=== PATIENT | male | born 1965 | race Hispanic/Latino ===

== ENCOUNTER 2016-07-26 18:28 | Inpatient (IN) | payer MEDICAID ==
[2016-07-26 18:29] VITALS: BMI 23.9
[2016-07-26] MEDS ORDERED: Sodium Chloride 0.9% 1,000 ML ONE (18:49)
[2016-07-26] MEDS ORDERED: Sodium Chloride 0.9% 1,000 ML IV ONE (18:56)
[2016-07-26 19:25] LABS: BASO % 0.2 % (0.0-2.0); HEMATOCRIT 46.5 % (35.0-51.0); LYMPH # 0.6 K/uL (1.0-4.3); LYMPH % 9.7 % (20.0-40.0); MEAN CELL VOLUME 93.5 fL (80.0-94.0); MEAN CORPUSCULAR HEMOGLOBIN 31.8 pg (27.0-31.0); MEAN PLATELET VOLUME 9.5 fL (7.2-11.7); MONO # 0.3 K/uL (0.0-0.8); MONO % 5.1 % (0.0-10.0); RED CELL DISTRIBUTION WIDTH 14.1 % (11.5-14.5)
[2016-07-26 19:33] LABS: CHLORIDE 85 mmol/L (98-107); POTASSIUM 4.7 mmol/L (3.6-5.2); SODIUM 137 mmol/L (132-148)
[2016-07-26 19:36] LABS: ALB/GLOB RATIO 1.3 (1.0-2.1); ALKALINE PHOSPHATASE 66 U/L (38-126); ALT/SGPT 52 U/L (21-72); AST/SGOT 69 U/L (17-59); BILIRUBIN,TOTAL 1.3 mg/dL (0.2-1.3); BLOOD UREA NITROGEN 13 mg/dL (9-20); CARBON DIOXIDE 16 mmol/L (22-30); GFR AFRICAN-AMERICAN > 60; GLUCOSE,RANDOM 233 mg/dL (75-110); TOTAL PROTEIN 9.3 g/dL (6.3-8.3)
[2016-07-26 19:37] LABS: ALCOHOL SERUM < 10 mg/dl (0-10)
[2016-07-26 19:44] LABS: PLATELET COUNT 87 K/uL (130-400); WHITE BLOOD COUNT 5.9 K/uL (4.8-10.8)
[2016-07-26 21:10] LABS: BASOPHIL 1 % (0-2); EOSINOPHIL 1 % (0-4); NEUTROPHIL 82 % (50-75); TOTAL CELLS COUNTED 100
[2016-07-26] MEDS ORDERED: Morphine 4 MG/ML VIAL ONE (21:10)
[2016-07-26 21:12] LABS: PLATELET CLUMPS PRESENT
[2016-07-26 21:35] LABS: VENOUS BLOOD GAS BASE EXCESS 0.6 mmol/L (0.0-2.0); VENOUS BLOOD GAS PCO2 36 mmHg (40-60); VENOUS BLOOD PH 7.44 (7.32-7.43)
--- NOTE | 2016-07-26 22:15 | C.PDOC ---
History Of Present Illness Patient presents to ED and extremity tremors, as well as multiple episodes of nausea/vomiting since yesterday. Patient typically drinks daily, last alcoholic drink was yesterday morning. He denies chest pain, SOB, diarrhea, fever, cough. Time Seen by Provider: 07/26/16 18:56 Chief Complaint (Nursing): Substance Abuse History Per: Patient Onset/Duration Of Symptoms: Gradual Current Symptoms Are (Timing): Still Present Modifying Factor(s): Alcohol Severity: Severe Past Medical History Reviewed: Historical Data, Nursing Documentation, Vital Signs Vital Signs: Last Vital Signs Temp 98.7 F 07/26/16 21:43 Pulse 104 H 07/26/16 21:43 Resp 20 07/26/16 21:43 BP 147/86 07/26/16 21:43 Pulse Ox 96 07/26/16 22:15 - Medical History PMH: Anxiety, Depression, 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) - [facility] Procedures ALCOHOL DETOXIFICATION (09/28/14) DETOXIFICATION SERVICES FOR SUBSTANCE ABUSE TREATMENT (02/20/16) GROUP [employer] FOR SUBSTANCE ABUSE TREATMENT, PSYCHOEDUCATION (10/27/15) - Social History Hx Tobacco Use: Yes Hx Alcohol Use: Yes Hx Substance Use: Yes - Immunization History Hx Tetanus Toxoid Vaccination: No Hx Influenza Vaccination: No Hx Pneumococcal Vaccination: No Review Of Systems Except As Marked, All Systems Reviewed And Found Negative. Constitutional: Negative for: Fever, Chills Cardiovascular: Negative for: Chest Pain, Palpitations Respiratory: Negative for: Shortness of Breath Gastrointestinal: Positive for: Nausea, Vomiting, Abdominal Pain. Negative for : Diarrhea Neurological: Positive for: Other (tremors) Physical Exam - Physical Exam Appears: Non-toxic, In Acute Distress (in moderate distress/pain) Skin: Warm, Dry Head: Normacephalic Eye(s): bilateral: Normal Inspection Oral Mucosa: Moist Tongue: Normal Appearing, Other (no tongue fasciculations) Cardiovascular: Rhythm Regular (tachycardic ) Respiratory: Normal Breath Sounds, No Rales, No Rhonchi, No Wheezing Gastrointestinal/Abdominal: Bowel Sounds, Soft, Tenderness (diffuse TTP greatest ar epigastric area), No Distention, No Guarding, No Rebound Neurological/Psych: Oriented x3, Other (moderate to severe tremors of extremities) ED Course And Treatment - Laboratory Results Result Diagrams: 07/26/16 19:19 07/26/16 19:19 O2 Sat by Pulse Oximetry: 96 - Physician Consult Information Physician Contacted: Mirna Davis Outcome Of Conversation: Discussed patient with Dr. Taylor Davis, he agrees with telemetry admission for alcohol withdrawal.
[2016-07-26 22:48] LABS: RBC URINE 5 /hpf (0-3); URINE BACTERIA RARE (<OCC); URINE BILIRUBIN NEGATIVE (NEGATIVE); URINE COLOR Yellow (YELLOW); URINE GLUCOSE (UA) 2+ mg/dL (Normal); URINE KETONE 2+ mg/dL (NEGATIVE); URINE LEUKOCYTE ESTERASE NEG Leu/uL (Negative); URINE PROTEIN 2+ mg/dL (NEGATIVE); URINE UROBILINOGEN NORMAL mg/dL (0.2-1.0); WBC URINE 1 /hpf (0-5)
[2016-07-26] MEDS ORDERED: Folic Acid 1 MG, Thiamine 100 MG, Multivitamin (MVI) 10 ML in Dextrose 5% In Water 1,00... IVPB STA (22:48)
[2016-07-26 22:51] LABS: URINE BLOOD TRACE (NEGATIVE)
--- NOTE | 2016-07-27 08:34 | RAD ---
HISTORY: ABDOMINAL PAIN COMPARISON: Chest x-ray performed 09/28/14 TECHNIQUE: Chest, one view. FINDINGS: External cardiac monitoring leads present. LUNGS: No focal consolidation. Please note that chest x-ray has limited sensitivity for the detection of pulmonary masses. PLEURA: No significant pleural effusion identified. No definite pneumothorax . CARDIOVASCULAR: Heart size appears within normal limits. OSSEOUS STRUCTURES: No acute osseous abnormality identified. VISUALIZED UPPER ABDOMEN: Unremarkable. OTHER FINDINGS: None. IMPRESSION: No focal consolidation, significant pleural effusion, or definite pneumothorax identified.
[2016-07-27] MEDS: Multiple Vitamins Tab PO SCH (09:45)
--- NOTE | 2016-07-27 16:16 | PCM.PSYCH ---
Initial Psychiatric Evaluation - Initial Psychiatric Evaluation Type of Admission: Voluntary Legal Status: Capacity Chief Complaint (in patient's own words): I was withdrawing from alcohol History of Present Illness and Precipitating Events: Pt is a 51 y/o CM who is currently living with family and currently unemployed, with history of alcohol dependence and depression, presented to the ED yesterday with tremors and/or DTs. Today patient was consulted because of history of alcohol abuse and depression. Cemetery Keeper is familiar with this patient. Patient has been admitted to the medical floor multiple times for the same issue. Patient is also following up with [facility]. As per the patient since last month he is drinking heavily. Patient states that day before yesterday he consumed more than 1 L of vodka. Yesterday he started developing shakes and tremors, so came to the hospital to get help. Patient reports of withdrawal symptoms including shakes, tremors, sweating, vomiting, anxiety and headaches. Patient reports depressed mood, at times feelings of hopelessness or helplessness but denies any suicidal ideation or homicidal ideation. He reports of auditory hallucinations noncommand type and visual hallucinations seeing shadows. He also reports at times racing of thoughts and flight of ideas and poor concentration. Patient denies any other substance abuse. Current Medications: Active Medications Generic Name Dose Route Start Last Admin Trade Name Freq PRN Reason Stop Dose Admin Chlordiazepoxide 25 mg 07/27/16 06:00 07/27/16 13:30 Librium PO 25 mg Q8 [facility] Administration Levetiracetam 250 mg 07/27/16 18:00 Keppra PO BID [facility] Metoclopramide HCl 10 mg 07/27/16 07:30 07/27/16 11:34 Reglan PO 10 mg TIDAC [facility] Administration Multivitamins 1 tab 07/27/16 10:00 07/27/16 09:45 Hexavitamin PO 1 tab DAILY [facility] Administration Pantoprazole Sodium 40 mg 07/27/16 10:00 07/27/16 09:45 Protonix Inj IVP 40 mg DAILY [facility] Administration Thiamine HCl 100 mg 07/27/16 10:00 07/27/16 09:45 Vitamin B1 Tab PO 100 mg DAILY [facility] Administration Past Psychiatric History - Past Psychiatric History Previous Treatment History: Inpatient Pertinent Medical Hx (Current Medical&Sleep Prob, Allergies): Allergies Allergy/AdvReac Type Severity Reaction Status Date / Time No Known Allergies Allergy Verified 10/09/16 10:39 levETIRAcetam [Keppra] 250 mg PO BID #14 tab 10/31/15 Gabapentin [Neurontin] 600 mg PO TID #90 cap 02/27/16 Pantoprazole [Protonix EC Tab] 40 mg PO DAILY #30 ect 02/27/16 QUEtiapine [Seroquel] 100 mg PO HS #30 tab 02/27/16 Topiramate [Topamax] 25 mg PO TID #90 tab 02/27/16 Review of Systems - Review of Systems All systems: reviewed and no additional remarkable complaints except - Psychiatric Psychiatric: Anxiety, Auditory Hallucinations, Irritability, Paranoia, Suicidal Ideation, Visual Hallucinations Mental Status Examination - Personal Presentation Personal Presentation: Looks stated age - Affect Affect: Constricted, Depressed - Motor Activity Motor Activity: Psychomotor Retardation - Reliability in Providing Information Reliability in Providing Information: Poor, due to alteration in thoughts, Poor , due to altered mood - Speech Speech: Organized - Mood Mood: Depressed, Anxious - Formal Thought Process Formal Thought Process: Hallucinations, Delusions, Paranoia - Hallucinations/Delusions Hallucinations: Visual, Auditory Delusions: Persecution - Obsessions/Compulsions Obsessions: No Compulsions: No - Cognitive Functions Orientation: Person, Place, Situation, Time Sensorium: Alert Attention/Concentration: Attentive Abstract Thinking: [place] Estimate of Intelligence: Below average Judgement: Imparied, as evidence by: Poor judgement, Intact, as evidence by: Insight regarding need for hospitalization - Risk Risk: Withdrawal, Diminished functioning - Strength & Assets Inventory Strength & Assets Inventory: Cooperative - Limitations Limitations: Living alone DSM 5 DX - DSM 5 DSM 5 Diagnosis: Alcohol use disorder severe Alcohol withdrawal uncomplicated Bipolar disorder mixed severe with psychotic features - Recommended/Plan of Treatment Treatment Recommendations and Plan of Treatment: Alcohol use disorder severe CBT Psychoeducation Supportive therapy, individual therapy Use [place] for abstinence Alcohol withdrawal uncomplicated CBT Psychoeducation Supportive therapy, individual therapy Librium when necessary Librium taper Multivitamin/thiamine/folic acid Bipolar disorder mixed severe with psychotic features CBT Psychoeducation Supportive therapy, individual therapy Zoloft 50 mg PO daily Haldol 5 mg by mouth twice a day Cogentin 1 mg by mouth twice a day Keppra 250 Mg by Mouth Twice a Day - Smoking Cessation Smoking Cessation Initiated: No
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
[2016-07-28] MEDS: Multiple Vitamins Tab PO SCH (09:32)
[2016-07-28] MEDS: Pantoprazole 40 mg EC Tab PO SCH (12:22)
--- NOTE | 2016-07-28 14:37 | CP.PCM.PN ---
Subjective - Date & Time of Evaluation Date of Evaluation: 07/28/16 Time of Evaluation: 10:20 - Subjective Subjective: clinically same Objective - Vital Signs/Intake and Output Vital Signs (last 24 hours): Temp Pulse Resp BP Pulse Ox 97.6 F 72 18 109/69 97 07/28/16 07:38 07/28/16 07:38 07/28/16 07:38 07/28/16 07:38 07/28/16 07:38 Intake and Output: 07/28/16 07/28/16 06:59 18:59 Intake Total 320 Output Total 900 Balance -580 - Medications Medications: Current Medications Benztropine Mesylate (Cogentin) 1 mg PO BID [facility] Last Admin: 07/28/16 09:32 Dose: 1 mg Chlordiazepoxide (Librium) 25 mg PO Q6H [facility] PRN Reason: Taper Stop: 07/31/16 17:59 Last Admin: 07/28/16 12:21 Dose: 25 mg Chlordiazepoxide (Librium) 50 mg PO Q4 PRN PRN Reason: Symptoms of alcohol withdrawl Last Admin: 07/27/16 21:48 Dose: 50 mg Folic Acid (Folic Acid) 1 mg PO DAILY [facility] Last Admin: 07/28/16 09:32 Dose: 1 mg Haloperidol (Haldol) 5 mg PO BID [facility] Last Admin: 07/28/16 09:32 Dose: 5 mg Levetiracetam (Keppra) 250 mg PO BID [facility] Last Admin: 07/28/16 09:32 Dose: 250 mg Metoclopramide HCl (Reglan) 10 mg PO TIDAC [facility] Last Admin: 07/28/16 12:22 Dose: 10 mg Multivitamins (Hexavitamin) 1 tab PO DAILY [facility] Last Admin: 07/28/16 09:32 Dose: 1 tab Pantoprazole Sodium (Protonix Ec Tab) 40 mg PO DAILY [facility] Last Admin: 07/28/16 12:22 Dose: 40 mg Sertraline HCl (Zoloft) 50 mg PO DAILY [facility] Last Admin: 07/28/16 09:36 Dose: 50 mg Thiamine HCl (Vitamin B1 Tab) 100 mg PO DAILY [facility] Last Admin: 07/28/16 09:32 Dose: 100 mg - Constitutional Appears: Well - Head Exam Head Exam: ATRAUMATIC, NORMAL INSPECTION, NORMOCEPHALIC - Eye Exam Eye Exam: EOMI, Normal appearance, PERRL Pupil Exam: NORMAL ACCOMODATION, PERRL - ENT Exam ENT Exam: Mucous Membranes Moist, Normal Exam - Neck Exam Neck Exam: Full ROM, Normal Inspection. absent: Lymphadenopathy - Respiratory Exam Respiratory Exam: Decreased Breath Sounds - Cardiovascular Exam Cardiovascular Exam: REGULAR RHYTHM, +S1, +S2 - GI/Abdominal Exam GI & Abdominal Exam: Soft, Diminished Bowel Sounds - Rectal Exam Rectal Exam: Deferred Assessment and Plan (1) Abdominal pain Status: Acute (2) Alcohol withdrawal syndrome Status: Acute (3) Alcohol abuse Status: Acute (4) Alcohol dependence Status: Acute (5) Alcohol intoxication Status: Acute (6) BPH (benign prostatic hyperplasia) Status: Acute (7) Delirium tremens Status: Acute - Assessment and Plan (Free Text) Plan: iris teresa precaution jean-claude same alco detox stop alco advsied
--- NOTE | 2016-07-29 09:09 | CARD ---
APPROVED REPORT EKG Measurement Heart [id number] <Conclusion> Normal sinus rhythm Normal ECG
[2016-07-29] MEDS: Multiple Vitamins Tab PO SCH (10:15)
[2016-07-29] MEDS: Pantoprazole 40 mg EC Tab PO SCH (10:15)
--- NOTE | 2016-07-29 10:59 | CP.PCM.PN ---
Subjective - Date & Time of Evaluation Date of Evaluation: 07/29/16 Time of Evaluation: 09:00 - Subjective Subjective: clinical same Objective - Vital Signs/Intake and Output Vital Signs (last 24 hours): Temp Pulse Resp BP Pulse Ox 98 F 65 18 125/84 96 07/29/16 08:39 07/29/16 08:39 07/29/16 08:39 07/29/16 08:39 07/29/16 08:39 - Medications Medications: Current Medications Benztropine Mesylate (Cogentin) 1 mg PO BID [facility] Last Admin: 07/29/16 10:15 Dose: 1 mg Chlordiazepoxide (Librium) 25 mg PO Q8H [facility] PRN Reason: Taper Stop: 07/31/16 17:59 Last Admin: 07/29/16 10:15 Dose: 25 mg Chlordiazepoxide (Librium) 50 mg PO Q4 PRN PRN Reason: Symptoms of alcohol withdrawl Last Admin: 07/28/16 22:31 Dose: 50 mg Folic Acid (Folic Acid) 1 mg PO DAILY [facility] Last Admin: 07/29/16 10:15 Dose: 1 mg Haloperidol (Haldol) 5 mg PO BID [facility] Last Admin: 07/29/16 10:15 Dose: 5 mg Levetiracetam (Keppra) 250 mg PO BID [facility] Last Admin: 07/29/16 10:15 Dose: 250 mg Metoclopramide HCl (Reglan) 10 mg PO TIDAC [facility] Last Admin: 07/29/16 08:15 Dose: 10 mg Multivitamins (Hexavitamin) 1 tab PO DAILY [facility] Last Admin: 07/29/16 10:15 Dose: 1 tab Pantoprazole Sodium (Protonix Ec Tab) 40 mg PO DAILY [facility] Last Admin: 07/29/16 10:15 Dose: 40 mg Sertraline HCl (Zoloft) 50 mg PO DAILY [facility] Last Admin: 07/29/16 10:14 Dose: 50 mg Thiamine HCl (Vitamin B1 Tab) 100 mg PO DAILY [facility] Last Admin: 07/29/16 10:16 Dose: 100 mg - Constitutional Appears: Well - Head Exam Head Exam: ATRAUMATIC - Eye Exam Eye Exam: Normal appearance Pupil Exam: NORMAL ACCOMODATION - ENT Exam ENT Exam: Normal Exam - Neck Exam Neck Exam: Full ROM - Respiratory Exam Respiratory Exam: Decreased Breath Sounds, Rales - Cardiovascular Exam Cardiovascular Exam: REGULAR RHYTHM - GI/Abdominal Exam GI & Abdominal Exam: Diminished Bowel Sounds - Rectal Exam Rectal Exam: Deferred - Neurological Exam Neurological Exam: Alert Assessment and Plan (1) Abdominal pain Status: Acute (2) Alcohol withdrawal Status: Acute (3) Alcohol withdrawal syndrome Status: Acute (4) Anxiety and depression Status: Acute (5) Confusion Status: Acute (6) Prophylactic measure Status: Acute (7) Thrombocytopenia Status: Acute (8) Alcohol abuse Status: Acute (9) Alcohol dependence Status: Acute (10) Alcohol intoxication Status: Acute (11) Alcoholism /alcohol abuse Status: Acute (12) BPH (benign prostatic hyperplasia) Status: Acute (13) Constipation Status: Acute (14) Dehydration Status: Acute (15) Delirium tremens Status: Acute (16) Elevated LFTs Status: Acute (17) Foot pain, right Status: Acute (18) Hypertension Status: Acute (19) Leukocytopenia Status: Acute (20) Thrombocytopenia due to diminished platelet production Status: Acute (21) Tobacco abuse Status: Acute (22) Vomiting Status: Acute - Assessment and Plan (Free Text) Plan: etoh stop thiamne mvi dts precaution jean-claude same as ordered lft monitoring
--- NOTE | 2016-07-30 07:36 | CP.PCM.PN ---
<Gregory Maradiaga H - Last Filed: 07/30/16 16:59> Subjective - Date & Time of Evaluation Date of Evaluation: 07/30/16 Time of Evaluation: 09:30 - Subjective Subjective: Dr. Davis service Patient is seen and evaluated in room. Patient reports feeling anxious. He says he is eating and having bowel movements. He has a tremor that has improved. He reports a history of seizures due to etoh withdrawal. He currently denies nausea, vomiting, diarrhea, shortness of breath, chest pain, or lower leg swelling or pain. He is able to walk around his room although he still has a hand tremors. Objective - Vital Signs/Intake and Output Vital Signs (last 24 hours): Temp Pulse Resp BP Pulse Ox 97.8 F 89 20 123/79 96 07/29/16 23:00 07/29/16 23:00 07/29/16 23:00 07/29/16 23:00 07/29/16 23:00 Intake and Output: 07/30/16 07/30/16 06:59 18:59 Intake Total 120 Balance 120 - Medications Medications: Current Medications Benztropine Mesylate (Cogentin) 1 mg PO BID [facility] Last Admin: 07/29/16 17:31 Dose: 1 mg Chlordiazepoxide (Librium) 25 mg PO Q12H [facility] PRN Reason: Taper Stop: 07/31/16 17:59 Last Admin: 07/30/16 05:37 Dose: Not Given Chlordiazepoxide (Librium) 50 mg PO Q4 PRN PRN Reason: Symptoms of alcohol withdrawl Last Admin: 07/28/16 22:31 Dose: 50 mg Folic Acid (Folic Acid) 1 mg PO DAILY [facility] Last Admin: 07/29/16 10:15 Dose: 1 mg Haloperidol (Haldol) 5 mg PO BID [facility] Last Admin: 07/29/16 17:31 Dose: 5 mg Levetiracetam (Keppra) 250 mg PO BID [facility] Last Admin: 07/29/16 17:31 Dose: 250 mg Metoclopramide HCl (Reglan) 10 mg PO TIDAC [facility] Last Admin: 07/29/16 16:36 Dose: 10 mg Multivitamins (Hexavitamin) 1 tab PO DAILY [facility] Last Admin: 07/29/16 10:15 Dose: 1 tab Nicotine (Nicoderm Cq) 1 patch TD DAILY [facility] Last Admin: 07/29/16 21:37 Dose: 1 patch Pantoprazole Sodium (Protonix Ec Tab) 40 mg PO DAILY [facility] Last Admin: 07/29/16 10:15 Dose: 40 mg Sertraline HCl (Zoloft) 50 mg PO DAILY [facility] Last Admin: 07/29/16 10:14 Dose: 50 mg Thiamine HCl (Vitamin B1 Tab) 100 mg PO DAILY [facility] Last Admin: 07/29/16 10:16 Dose: 100 mg - Constitutional Appears: Non-toxic, No Acute Distress - Head Exam Head Exam: ATRAUMATIC, NORMAL INSPECTION - Eye Exam Eye Exam: Normal appearance - Respiratory Exam Respiratory Exam: Clear to Ausculation Bilateral. absent: Rhonchi, Wheezes - Cardiovascular Exam Cardiovascular Exam: REGULAR RHYTHM, RRR, +S1, +S2. absent: Gallop, Rubs - GI/Abdominal Exam GI & Abdominal Exam: Soft, Normal Bowel Sounds. absent: Tenderness - Extremities Exam Extremities Exam: Normal Inspection. absent: Pedal Edema - Back Exam Back Exam: NORMAL INSPECTION - Skin Skin Exam: Normal Color Assessment and Plan (1) Alcohol withdrawal syndrome Assessment & Plan: Patient has been put on Ativan prn, will keep for with [facility]WA protocol for now. Because of the elevated LFTs have decided to dc his Librium. Will do a hepatitis panel. Patient on Folic, thiamine, Multivitamin Follow up Psychiatry Status: Acute (2) Transaminitis Assessment & Plan: Most likely secondary to the Librium given. Follow up Hepatits panel in the am. Status: Acute (3) Thrombocytopenia Assessment & Plan: Secondary to his etoh abuse. Status: Acute (4) Prophylactic measure Assessment & Plan: Protonix 40mg no anticoagulation due thrombocytopenia Nicoderm cq Zoloft 50mg Will Status: Acute <Mirna Davis S - Last Filed: 08/02/16 17:51> Objective - Vital Signs/Intake and Output Vital Signs (last 24 hours): Temp Pulse Resp BP Pulse Ox 97.5 F L 57 L 20 99/55 L 97 08/02/16 07:42 08/02/16 07:42 08/02/16 07:42 08/02/16 07:42 08/02/16 07:42 Intake and Output: 08/02/16 08/02/16 06:59 18:59 Intake Total 480 Balance 480 - Labs Labs: 08/02/16 07:11 08/02/16 07:11 Assessment and Plan (1) Abdominal pain Status: Acute (2) Alcohol withdrawal Status: Acute (3) Alcohol withdrawal syndrome Status: Acute (4) Anxiety and depression Status: Acute (5) Confusion Status: Acute (6) Prophylactic measure Status: Acute (7) Thrombocytopenia Status: Acute (8) Alcohol abuse Status: Acute (9) Alcohol dependence Status: Acute (10) Alcohol intoxication Status: Acute (11) Alcoholism /alcohol abuse Status: Acute (12) BPH (benign prostatic hyperplasia) Status: Acute (13) Constipation Status: Acute (14) Dehydration Status: Acute (15) Delirium tremens Status: Acute (16) Elevated LFTs Status: Acute (17) Foot pain, right Status: Acute (18) Hypertension Status: Acute (19) Leukocytopenia Status: Acute (20) Thrombocytopenia due to diminished platelet production Status: Acute (21) Tobacco abuse Status: Acute (22) Vomiting Status: Acute Attending/Attestation - Attestation I have personally seen and examined this patient.: Yes I have fully participated in the care of the patient.: Yes I have reviewed all pertinent clinical information, including history, physical exam and plan: Yes Notes (Text): 08/02/16 17:50 case seen and discussed with staff vitor mota as agreed
[2016-07-30] MEDS: Multiple Vitamins Tab PO SCH (09:54)
[2016-07-30] MEDS: Pantoprazole 40 mg EC Tab PO SCH (09:54)
[2016-07-30 11:50] LABS: BASO % 0.3 % (0.0-2.0); EOS # 0.2 K/uL (0.0-0.7); EOS % 3.3 % (0.0-4.0); HEMATOCRIT 42.3 % (35.0-51.0); LYMPH # 2.1 K/uL (1.0-4.3); LYMPH % 32.9 % (20.0-40.0); MEAN CORPUSCULAR HEMOGLOBIN 31.5 pg (27.0-31.0); MEAN CORPUSCULAR HGB CONC 32.9 g/dL (33.0-37.0); MEAN PLATELET VOLUME 10.9 fL (7.2-11.7); MONO # 0.4 K/uL (0.0-0.8); MONO % 6.7 % (0.0-10.0); RED CELL DISTRIBUTION WIDTH 13.8 % (11.5-14.5); WHITE BLOOD COUNT 6.3 K/uL (4.8-10.8)
[2016-07-30 12:13] LABS: MEAN CELL VOLUME 95.9 fL (80.0-94.0)
[2016-07-30 12:20] LABS: CHLORIDE 94 mmol/L (98-107); SODIUM 138 mmol/L (132-148)
[2016-07-30 12:21] LABS: POTASSIUM 3.8 mmol/L (3.6-5.2)
[2016-07-30 12:22] LABS: GFR AFRICAN-AMERICAN > 60
[2016-07-30 12:23] LABS: ALB/GLOB RATIO 1.4 (1.0-2.1); ALKALINE PHOSPHATASE 47 U/L (38-126); ALT/SGPT 214 U/L (21-72); AST/SGOT 198 U/L (17-59); BILIRUBIN,TOTAL 0.6 mg/dL (0.2-1.3); BLOOD UREA NITROGEN 12 mg/dL (9-20); CALCIUM 9.5 mg/dl (8.6-10.4); CARBON DIOXIDE 28 mmol/L (22-30); GLUCOSE,RANDOM 117 mg/dL (75-110); PHOSPHOROUS 4.2 mg/dL (2.5-4.5); TOTAL PROTEIN 7.4 g/dL (6.3-8.3)
[2016-07-30 12:24] LABS: MAGNESIUM 1.6 mg/dL (1.6-2.3)
--- NOTE | 2016-07-30 12:52 | PCM.PYCHPN ---
Psychiatric Progress Note - Psychiatric Progress Note Patient seen today, length of contact: 16 Patient Chief Complaint: I was withdrawing from alcohol Mental Status Examination - Cognitive Function Orientation: Person, Place, Situation, Time - Mood Mood: Depressed, Anxious - Affect Affect: Constricted, Depressed - Formal Thought Process Formal Thought Process: Hallucinations, Delusions, Paranoia Goal/Treatment Plan - Goal/Treatment Plan Progress Toward Problem(s) and Goals/Treatment Plan: Alcohol use disorder severe CBT Psychoeducation Supportive therapy, individual therapy Use [place] for abstinence Alcohol withdrawal uncomplicated CBT Psychoeducation Supportive therapy, individual therapy Librium when necessary Librium taper Multivitamin/thiamine/folic acid Bipolar disorder mixed severe with psychotic features CBT Psychoeducation Supportive therapy, individual therapy Zoloft 50 mg PO daily Haldol 5 mg by mouth twice a day Cogentin 1 mg by mouth twice a day Keppra 250 Mg by Mouth Twice a Day
--- NOTE | 2016-07-30 17:15 | CP.PCM.PN ---
Subjective - Date & Time of Evaluation Date of Evaluation: 07/30/16 Time of Evaluation: 10:00 - Subjective Subjective: clinically same tremot improvedp[t wants to go home but elevatd lft Objective - Vital Signs/Intake and Output Vital Signs (last 24 hours): Temp Pulse Resp BP Pulse Ox 97.7 F 66 18 120/78 97 07/30/16 07:00 07/30/16 12:00 07/30/16 07:00 07/30/16 07:00 07/30/16 07:00 Intake and Output: 07/30/16 07/30/16 06:59 18:59 Intake Total 120 400 Balance 120 400 - Medications Medications: Current Medications Benztropine Mesylate (Cogentin) 1 mg PO BID [facility] Last Admin: 07/30/16 09:55 Dose: 1 mg Folic Acid (Folic Acid) 1 mg PO DAILY [facility] Last Admin: 07/30/16 09:55 Dose: 1 mg Haloperidol (Haldol) 5 mg PO BID [facility] Last Admin: 07/30/16 09:55 Dose: 5 mg Levetiracetam (Keppra) 250 mg PO BID [facility] Last Admin: 07/30/16 09:55 Dose: 250 mg Lorazepam (Ativan) 1 mg PO Q6 PRN PRN Reason: Symptoms of alcohol withdrawl Metoclopramide HCl (Reglan) 10 mg PO TIDAC [facility] Last Admin: 07/30/16 16:45 Dose: 10 mg Multivitamins (Hexavitamin) 1 tab PO DAILY [facility] Last Admin: 07/30/16 09:54 Dose: 1 tab Nicotine (Nicoderm Cq) 1 patch TD DAILY [facility] Last Admin: 07/30/16 09:59 Dose: 1 patch Pantoprazole Sodium (Protonix Ec Tab) 40 mg PO DAILY [facility] Last Admin: 07/30/16 09:54 Dose: 40 mg Sertraline HCl (Zoloft) 50 mg PO DAILY [facility] Last Admin: 07/30/16 09:54 Dose: 50 mg Thiamine HCl (Vitamin B1 Tab) 100 mg PO DAILY [facility] Last Admin: 07/30/16 09:55 Dose: 100 mg - Labs Labs: 07/30/16 11:33 07/30/16 11:33 - Constitutional Appears: Well - Head Exam Head Exam: ATRAUMATIC, NORMAL INSPECTION, NORMOCEPHALIC - Eye Exam Eye Exam: EOMI, Normal appearance, PERRL Pupil Exam: NORMAL ACCOMODATION, PERRL - ENT Exam ENT Exam: Mucous Membranes Moist, Normal Exam - Neck Exam Neck Exam: Full ROM, Normal Inspection. absent: Lymphadenopathy - Respiratory Exam Respiratory Exam: Decreased Breath Sounds - Cardiovascular Exam Cardiovascular Exam: REGULAR RHYTHM, +S1, +S2 - GI/Abdominal Exam GI & Abdominal Exam: Soft, Diminished Bowel Sounds - Rectal Exam Rectal Exam: Deferred Assessment and Plan (1) Abdominal pain Status: Acute (2) Alcohol withdrawal Status: Acute (3) Alcohol withdrawal syndrome Status: Acute (4) Anxiety and depression Status: Acute (5) Prophylactic measure Status: Acute (6) Thrombocytopenia Status: Acute (7) Alcohol dependence Status: Acute (8) Alcohol intoxication Status: Acute (9) Alcoholism /alcohol abuse Status: Acute (10) BPH (benign prostatic hyperplasia) Status: Acute - Assessment and Plan (Free Text) Plan: jean-claude same disoncti libirium but jean-claude ativan psych thiamine mvi and other med as ordered lft tomorrow
[2016-07-31 07:29] LABS: CHLORIDE 97 mmol/L (98-107); SODIUM 138 mmol/L (132-148)
[2016-07-31 07:31] LABS: ALB/GLOB RATIO 1.4 (1.0-2.1); AST/SGOT 184 U/L (17-59); BILIRUBIN,TOTAL 0.5 mg/dL (0.2-1.3); CARBON DIOXIDE 28 mmol/L (22-30); GFR AFRICAN-AMERICAN > 60; TOTAL PROTEIN 6.7 g/dL (6.3-8.3)
[2016-07-31 07:32] LABS: ALKALINE PHOSPHATASE 43 U/L (38-126); ALT/SGPT 227 U/L (21-72); BLOOD UREA NITROGEN 14 mg/dL (9-20); CALCIUM 9.1 mg/dl (8.6-10.4); GLUCOSE,RANDOM 96 mg/dL (75-110); MAGNESIUM 1.7 mg/dL (1.6-2.3)
[2016-07-31 07:39] LABS: BASO % 0.6 % (0.0-2.0); EOS # 0.2 K/uL (0.0-0.7); EOS % 3.7 % (0.0-4.0); HEMATOCRIT 39.1 % (35.0-51.0); LYMPH # 2.3 K/uL (1.0-4.3); LYMPH % 50.1 % (20.0-40.0); MEAN CORPUSCULAR HEMOGLOBIN 31.4 pg (27.0-31.0); MEAN CORPUSCULAR HGB CONC 33.1 g/dL (33.0-37.0); MEAN PLATELET VOLUME 10.3 fL (7.2-11.7); MONO # 0.4 K/uL (0.0-0.8); MONO % 8.6 % (0.0-10.0); NRBC % 0.1 % (0.0-2.0); WHITE BLOOD COUNT 4.7 K/uL (4.8-10.8)
[2016-07-31] MEDS: Multiple Vitamins Tab PO SCH (09:30)
--- NOTE | 2016-07-31 11:10 | CP.PCM.PN ---
<Malathi Bliss - Last Filed: 07/31/16 11:07> Subjective - Date & Time of Evaluation Date of Evaluation: 07/31/16 Time of Evaluation: 07:45 - Subjective Subjective: Dr. Davis service Patient is seen and evaluated in room this AM. He says he is eating and having bowel movements. He has a tremor that has improved. He reports a history of seizures due to etoh withdrawal. He currently denies nausea, vomiting, diarrhea , shortness of breath, chest pain, or lower leg swelling or pain. He is able to walk around his room although he still has a hand tremors. Objective - Vital Signs/Intake and Output Vital Signs (last 24 hours): Temp Pulse Resp BP Pulse Ox 98.5 F 64 20 109/71 97 07/31/16 08:00 07/31/16 08:00 07/31/16 08:00 07/31/16 08:00 07/31/16 08:00 - Medications Medications: Current Medications Benztropine Mesylate (Cogentin) 1 mg PO BID [facility] Last Admin: 07/31/16 09:29 Dose: 1 mg Famotidine (Pepcid) 20 mg PO DAILY [facility] Last Admin: 07/31/16 09:29 Dose: 20 mg Folic Acid (Folic Acid) 1 mg PO DAILY [facility] Last Admin: 07/31/16 09:29 Dose: 1 mg Haloperidol (Haldol) 5 mg PO BID [facility] Last Admin: 07/31/16 09:30 Dose: 5 mg Levetiracetam (Keppra) 250 mg PO BID [facility] Last Admin: 07/31/16 09:30 Dose: 250 mg Lorazepam (Ativan) 1 mg PO Q6 PRN PRN Reason: Symptoms of alcohol withdrawl Metoclopramide HCl (Reglan) 10 mg PO TIDAC [facility] Last Admin: 07/31/16 08:17 Dose: 10 mg Multivitamins (Hexavitamin) 1 tab PO DAILY [facility] Last Admin: 07/31/16 09:30 Dose: 1 tab Nicotine (Nicoderm Cq) 1 patch TD DAILY [facility] Last Admin: 07/31/16 09:30 Dose: 1 patch Sertraline HCl (Zoloft) 50 mg PO DAILY [facility] Last Admin: 07/31/16 09:30 Dose: 50 mg Thiamine HCl (Vitamin B1 Tab) 100 mg PO DAILY [facility] Last Admin: 07/31/16 09:29 Dose: 100 mg - Labs Labs: 07/31/16 07:01 07/31/16 04:00 - Constitutional Appears: Non-toxic, No Acute Distress - Head Exam Head Exam: NORMAL INSPECTION - Eye Exam Eye Exam: EOMI - ENT Exam ENT Exam: Mucous Membranes Moist - Respiratory Exam Respiratory Exam: Clear to Ausculation Bilateral, NORMAL BREATHING PATTERN. absent: Rales, Rhonchi, Wheezes - Cardiovascular Exam Cardiovascular Exam: REGULAR RHYTHM, +S1, +S2. absent: Gallop, Rubs, Murmur - GI/Abdominal Exam GI & Abdominal Exam: Soft, Normal Bowel Sounds. absent: Distended, Firm, Tenderness - Extremities Exam Extremities Exam: absent: Pedal Edema - Neurological Exam Neurological Exam: Alert, Oriented x3 Additional comments: tremorous - Psychiatric Exam Psychiatric exam: Normal Affect, Normal Mood - Skin Skin Exam: Dry, Normal Color, Warm Assessment and Plan - Assessment and Plan (Free Text) Assessment: (1) Alcohol withdrawal syndrome Assessment & Plan: Patient has been put on Ativan prn, will keep for with CIWA protocol for now. Because of the elevated LFTs have decided to dc his Librium. LFTs decreasing Hepatitis panel negative Patient on Folic, thiamine, Multivitamin Follow up Psychiatry Status: Acute (2) Transaminitis Assessment & Plan: Most likely secondary to the Librium given. Hepatitis negative Improving Status: Acute (3) Thrombocytopenia Assessment & Plan: Secondary to his etoh abuse. Status: Acute (4) Prophylactic measure Assessment & Plan: Protonix 40mg no anticoagulation due thrombocytopenia Nicoderm cq Zoloft 50mg Cogentin <Mirna Davis S - Last Filed: 07/31/16 19:40> Objective - Vital Signs/Intake and Output Vital Signs (last 24 hours): Temp Pulse Resp BP Pulse Ox 97.6 F 68 20 118/72 96 07/31/16 15:32 07/31/16 15:32 07/31/16 15:32 07/31/16 15:32 07/31/16 15:32 - Medications Medications: Current Medications Benztropine Mesylate (Cogentin) 1 mg PO BID [facility] Last Admin: 07/31/16 17:56 Dose: 1 mg Famotidine (Pepcid) 20 mg PO DAILY [facility] Last Admin: 07/31/16 09:29 Dose: 20 mg Folic Acid (Folic Acid) 1 mg PO DAILY [facility] Last Admin: 07/31/16 09:29 Dose: 1 mg Haloperidol (Haldol) 5 mg PO BID [facility] Last Admin: 07/31/16 17:55 Dose: 5 mg Levetiracetam (Keppra) 250 mg PO BID [facility] Last Admin: 07/31/16 17:55 Dose: 250 mg Lorazepam (Ativan) 1 mg PO Q6 PRN PRN Reason: Symptoms of alcohol withdrawl Metoclopramide HCl (Reglan) 10 mg PO TIDAC [facility] Last Admin: 07/31/16 16:30 Dose: 10 mg Multivitamins (Hexavitamin) 1 tab PO DAILY [facility] Last Admin: 07/31/16 09:30 Dose: 1 tab Nicotine (Nicoderm Cq) 1 patch TD DAILY [facility] Last Admin: 07/31/16 09:30 Dose: 1 patch Sertraline HCl (Zoloft) 50 mg PO DAILY [facility] Last Admin: 07/31/16 09:30 Dose: 50 mg Thiamine HCl (Vitamin B1 Tab) 100 mg PO DAILY [facility] Last Admin: 07/31/16 09:29 Dose: 100 mg - Labs Labs: 07/31/16 07:01 07/31/16 04:00 Attending/Attestation - Attestation I have personally seen and examined this patient.: Yes I have fully participated in the care of the patient.: Yes I have reviewed all pertinent clinical information, including history, physical exam and plan: Yes Notes (Text): 07/31/16 19:40 case seen and discussed with staff and resident mx agreed
[2016-07-31 12:54] LABS: BILIRUBIN,DIRECT 0.4 mg/dL (0.0-0.4)
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
--- NOTE | 2016-07-31 16:38 | CP.PCM.PN ---
Subjective - Date & Time of Evaluation Date of Evaluation: 07/31/16 Time of Evaluation: 09:40 - Subjective Subjective: clinically same Objective - Vital Signs/Intake and Output Vital Signs (last 24 hours): Temp Pulse Resp BP Pulse Ox 97.6 F 68 20 118/72 96 07/31/16 15:32 07/31/16 15:32 07/31/16 15:32 07/31/16 15:32 07/31/16 15:32 - Medications Medications: Current Medications Benztropine Mesylate (Cogentin) 1 mg PO BID [facility] Last Admin: 07/31/16 09:29 Dose: 1 mg Famotidine (Pepcid) 20 mg PO DAILY [facility] Last Admin: 07/31/16 09:29 Dose: 20 mg Folic Acid (Folic Acid) 1 mg PO DAILY [facility] Last Admin: 07/31/16 09:29 Dose: 1 mg Haloperidol (Haldol) 5 mg PO BID [facility] Last Admin: 07/31/16 09:30 Dose: 5 mg Levetiracetam (Keppra) 250 mg PO BID [facility] Last Admin: 07/31/16 09:30 Dose: 250 mg Lorazepam (Ativan) 1 mg PO Q6 PRN PRN Reason: Symptoms of alcohol withdrawl Metoclopramide HCl (Reglan) 10 mg PO TIDAC [facility] Last Admin: 07/31/16 16:30 Dose: 10 mg Multivitamins (Hexavitamin) 1 tab PO DAILY [facility] Last Admin: 07/31/16 09:30 Dose: 1 tab Nicotine (Nicoderm Cq) 1 patch TD DAILY [facility] Last Admin: 07/31/16 09:30 Dose: 1 patch Sertraline HCl (Zoloft) 50 mg PO DAILY [facility] Last Admin: 07/31/16 09:30 Dose: 50 mg Thiamine HCl (Vitamin B1 Tab) 100 mg PO DAILY [facility] Last Admin: 07/31/16 09:29 Dose: 100 mg - Labs Labs: 07/31/16 07:01 07/31/16 04:00 - Constitutional Appears: Well - Head Exam Head Exam: ATRAUMATIC, NORMAL INSPECTION, NORMOCEPHALIC - Eye Exam Eye Exam: EOMI, Normal appearance, PERRL Pupil Exam: NORMAL ACCOMODATION, PERRL - ENT Exam ENT Exam: Mucous Membranes Moist, Normal Exam - Neck Exam Neck Exam: Full ROM, Normal Inspection. absent: Lymphadenopathy - Respiratory Exam Respiratory Exam: Decreased Breath Sounds - Cardiovascular Exam Cardiovascular Exam: REGULAR RHYTHM, +S1, +S2 - GI/Abdominal Exam GI & Abdominal Exam: Soft, Diminished Bowel Sounds - Rectal Exam Rectal Exam: Deferred Assessment and Plan (1) Abdominal pain Status: Acute (2) Alcohol withdrawal Status: Acute (3) Alcohol withdrawal syndrome Status: Acute (4) Anxiety and depression Status: Acute (5) Confusion Status: Acute (6) Thrombocytopenia Status: Acute (7) Alcohol dependence Status: Acute (8) Alcohol intoxication Status: Acute (9) BPH (benign prostatic hyperplasia) Status: Acute (10) Constipation Status: Acute (11) Delirium tremens Status: Acute - Assessment and Plan (Free Text) Plan: elevavted lft gi thiame mvi as ordered lft tomorrow am
[2016-08-01 07:46] LABS: BASO % 0.5 % (0.0-2.0); EOS # 0.2 K/uL (0.0-0.7); EOS % 3.8 % (0.0-4.0); HEMATOCRIT 39.2 % (35.0-51.0); LYMPH # 2.3 K/uL (1.0-4.3); LYMPH % 48.6 % (20.0-40.0); MEAN CELL VOLUME 95.8 fL (80.0-94.0); MEAN CORPUSCULAR HEMOGLOBIN 32.2 pg (27.0-31.0); MEAN CORPUSCULAR HGB CONC 33.6 g/dL (33.0-37.0); MEAN PLATELET VOLUME 10.3 fL (7.2-11.7); MONO # 0.6 K/uL (0.0-0.8); MONO % 11.7 % (0.0-10.0); NRBC % 0.1 % (0.0-2.0); RED CELL DISTRIBUTION WIDTH 13.9 % (11.5-14.5); WHITE BLOOD COUNT 4.8 K/uL (4.8-10.8)
[2016-08-01 08:01] LABS: CHLORIDE 98 mmol/L (98-107); POTASSIUM 4.1 mmol/L (3.6-5.2); SODIUM 138 mmol/L (132-148)
[2016-08-01 08:03] LABS: ALB/GLOB RATIO 1.5 (1.0-2.1); AST/SGOT 173 U/L (17-59); BILIRUBIN,TOTAL 0.4 mg/dL (0.2-1.3); CARBON DIOXIDE 26 mmol/L (22-30); GFR AFRICAN-AMERICAN > 60; TOTAL PROTEIN 6.5 g/dL (6.3-8.3)
[2016-08-01 08:04] LABS: ALKALINE PHOSPHATASE 43 U/L (38-126); ALT/SGPT 266 U/L (21-72); BLOOD UREA NITROGEN 13 mg/dL (9-20); GLUCOSE,RANDOM 89 mg/dL (75-110)
[2016-08-01 08:26] VITALS: RESP 20
[2016-08-01] MEDS: Multiple Vitamins Tab PO SCH (09:39)
--- NOTE | 2016-08-01 10:28 | CP.PCM.PN ---
<JeanineAilyn - Last Filed: 08/01/16 10:26> Subjective - Date & Time of Evaluation Date of Evaluation: 08/01/16 Time of Evaluation: 10:26 - Subjective Subjective: Gastroenterology Fellow/PGY4 Progress Note Patient admits to mild abdominal discomfort. Admits to malaise. Continues to have tremors with alcohol withdrawal. A 12-point review of systems negative except for as above. Objective - Vital Signs/Intake and Output Vital Signs (last 24 hours): Temp Pulse Resp BP Pulse Ox 97.2 F L 58 L 20 106/66 94 L 08/01/16 08:25 08/01/16 08:25 08/01/16 08:25 08/01/16 08:25 08/01/16 08:25 - Medications Medications: Current Medications Benztropine Mesylate (Cogentin) 1 mg PO BID [facility] Last Admin: 08/01/16 09:39 Dose: 1 mg Famotidine (Pepcid) 20 mg PO DAILY [facility] Last Admin: 08/01/16 09:39 Dose: 20 mg Folic Acid (Folic Acid) 1 mg PO DAILY [facility] Last Admin: 08/01/16 09:39 Dose: 1 mg Haloperidol (Haldol) 5 mg PO BID [facility] Last Admin: 08/01/16 09:40 Dose: 5 mg Levetiracetam (Keppra) 250 mg PO BID [facility] Last Admin: 08/01/16 09:39 Dose: 250 mg Lorazepam (Ativan) 1 mg PO Q6 PRN PRN Reason: Symptoms of alcohol withdrawl Metoclopramide HCl (Reglan) 10 mg PO TIDAC [facility] Last Admin: 08/01/16 08:16 Dose: 10 mg Multivitamins (Hexavitamin) 1 tab PO DAILY [facility] Last Admin: 08/01/16 09:39 Dose: 1 tab Nicotine (Nicoderm Cq) 1 patch TD DAILY [facility] Last Admin: 08/01/16 09:40 Dose: 1 patch Sertraline HCl (Zoloft) 50 mg PO DAILY [facility] Last Admin: 08/01/16 09:39 Dose: 50 mg Thiamine HCl (Vitamin B1 Tab) 100 mg PO DAILY [facility] Last Admin: 08/01/16 09:39 Dose: 100 mg - Labs Labs: 08/01/16 07:26 08/01/16 07:26 - Constitutional Appears: Non-toxic, No Acute Distress - Head Exam Head Exam: ATRAUMATIC, NORMOCEPHALIC - Eye Exam Eye Exam: EOMI, PERRL Pupil Exam: PERRL. absent: Miosis, Mydriatic - ENT Exam ENT Exam: Mucous Membranes Moist, Normal Oropharynx - Neck Exam Neck Exam: Full ROM, Normal Inspection - Respiratory Exam Respiratory Exam: Clear to Ausculation Bilateral. absent: Rales, Rhonchi, Wheezes - Cardiovascular Exam Cardiovascular Exam: RRR, +S1, +S2. absent: Gallop, Rubs - GI/Abdominal Exam GI & Abdominal Exam: Soft, Normal Bowel Sounds. absent: Distended, Firm, Guarding, Rigid, Tenderness, Organomegaly, Rebound - Extremities Exam Extremities Exam: Full ROM. absent: Pedal Edema - Neurological Exam Neurological Exam: Alert, Awake - Psychiatric Exam Psychiatric exam: Normal Affect, Normal Mood - Skin Skin Exam: Dry, Intact, Normal Color, Warm Assessment and Plan - Assessment and Plan (Free Text) Assessment: 51 year old male with history of Alcohol Abuse and BiPolar disorder mixed severe psychotic features presenting with alcohol withdrawal. Laboratory findings with elevated LFTs present on prior record review. Recent CT A/P with contrast 06/27/16 without gallstones, hepatic, or biliary pathology. Abdominal U/ S 03/2016- hepatic steatosis without gallstones or biliary pathology. No prior EGD. Colonoscopy endorsed in the last year to have hyperplastic and adenomatous polyps. Plan: >Hepatitis panel negative >chronic elevated LFTs and thrombocytopenia >primary team managing alcohol withdrawal >counselled on alcohol cessation and risk of ongoing liver damage with eventual liver cirrhosis >follow up with [employer] as previously recommended >Thank you for opportunity to participate in the care of this patient. <Mayda Morelos - Last Filed: 08/01/16 14:31> Objective - Vital Signs/Intake and Output Vital Signs (last 24 hours): Temp Pulse Resp BP Pulse Ox 97.2 F L 58 L 20 106/66 94 L 08/01/16 08:25 08/01/16 08:25 08/01/16 08:25 08/01/16 08:25 08/01/16 08:25 - Medications Medications: Current Medications Benztropine Mesylate (Cogentin) 1 mg PO BID [facility] Last Admin: 08/01/16 09:39 Dose: 1 mg Famotidine (Pepcid) 20 mg PO DAILY [facility] Last Admin: 08/01/16 09:39 Dose: 20 mg Folic Acid (Folic Acid) 1 mg PO DAILY [facility] Last Admin: 08/01/16 09:39 Dose: 1 mg Haloperidol (Haldol) 5 mg PO BID [facility] Last Admin: 08/01/16 09:40 Dose: 5 mg Levetiracetam (Keppra) 250 mg PO BID [facility] Last Admin: 08/01/16 09:39 Dose: 250 mg Lorazepam (Ativan) 1 mg PO Q6 PRN PRN Reason: Symptoms of alcohol withdrawl Last Admin: 08/01/16 11:08 Dose: 1 mg Metoclopramide HCl (Reglan) 10 mg PO TIDAC [facility] Last Admin: 08/01/16 13:05 Dose: 10 mg Multivitamins (Hexavitamin) 1 tab PO DAILY [facility] Last Admin: 08/01/16 09:39 Dose: 1 tab Nicotine (Nicoderm Cq) 1 patch TD DAILY [facility] Last Admin: 08/01/16 09:40 Dose: 1 patch Sertraline HCl (Zoloft) 50 mg PO DAILY [facility] Last Admin: 08/01/16 09:39 Dose: 50 mg Thiamine HCl (Vitamin B1 Tab) 100 mg PO DAILY [facility] Last Admin: 08/01/16 09:39 Dose: 100 mg - Labs Labs: 08/01/16 07:26 08/01/16 07:26 Attending/Attestation - Attestation I have personally seen and examined this patient.: Yes I have fully participated in the care of the patient.: Yes I have reviewed all pertinent clinical information, including history, physical exam and plan: Yes Notes (Text): Patient seen and examined with GI fellow. Agree with her note as documented above with the following additions/exceptions. This is a 51 year old male with history of ETOH abuse, bipolar disorder who presents with ETOH withdrawal. He has abnormal LFTs, chronic and likely related to underlying ETOH abuse. He has chronic thrombocytopenia without radiographic evidence of cirrhosis. They are currently stable. No new complaints. He is tolerating diet. Would continue to monitor LFTs and avoid hepatotoxic agents. ETOH cessation strongly recommended. Continue ETOH withdrawal management as per primary medical service. He will need outpatient hepatology follow up. Please call with any further questions or concerns. 08/01/16 14:28
--- NOTE | 2016-08-01 11:57 | CP.PCM.PN ---
<Malathi Bliss Ady - Last Filed: 08/01/16 11:54> Subjective - Date & Time of Evaluation Date of Evaluation: 08/01/16 Time of Evaluation: 07:50 - Subjective Subjective: Dr. Davis service Patient is seen and evaluated in room this AM. He says he is eating and having bowel movements. He has a tremor that has improved. He reports a history of seizures due to etoh withdrawal. Patient says he wants to go home. Patient He currently denies nausea, vomiting, diarrhea, shortness of breath, chest pain, or lower leg swelling or pain. He is able to walk around his room although he still has a hand tremors. Objective - Vital Signs/Intake and Output Vital Signs (last 24 hours): Temp Pulse Resp BP Pulse Ox 97.2 F L 58 L 20 106/66 94 L 08/01/16 08:25 08/01/16 08:25 08/01/16 08:25 08/01/16 08:25 08/01/16 08:25 - Medications Medications: Current Medications Benztropine Mesylate (Cogentin) 1 mg PO BID [facility] Last Admin: 08/01/16 09:39 Dose: 1 mg Famotidine (Pepcid) 20 mg PO DAILY [facility] Last Admin: 08/01/16 09:39 Dose: 20 mg Folic Acid (Folic Acid) 1 mg PO DAILY [facility] Last Admin: 08/01/16 09:39 Dose: 1 mg Haloperidol (Haldol) 5 mg PO BID [facility] Last Admin: 08/01/16 09:40 Dose: 5 mg Levetiracetam (Keppra) 250 mg PO BID [facility] Last Admin: 08/01/16 09:39 Dose: 250 mg Lorazepam (Ativan) 1 mg PO Q6 PRN PRN Reason: Symptoms of alcohol withdrawl Last Admin: 08/01/16 11:08 Dose: 1 mg Metoclopramide HCl (Reglan) 10 mg PO TIDAC [facility] Last Admin: 08/01/16 08:16 Dose: 10 mg Multivitamins (Hexavitamin) 1 tab PO DAILY [facility] Last Admin: 08/01/16 09:39 Dose: 1 tab Nicotine (Nicoderm Cq) 1 patch TD DAILY [facility] Last Admin: 08/01/16 09:40 Dose: 1 patch Sertraline HCl (Zoloft) 50 mg PO DAILY [facility] Last Admin: 08/01/16 09:39 Dose: 50 mg Thiamine HCl (Vitamin B1 Tab) 100 mg PO DAILY [facility] Last Admin: 08/01/16 09:39 Dose: 100 mg - Labs Labs: 08/01/16 07:26 08/01/16 07:26 - Constitutional Appears: Non-toxic, No Acute Distress - Head Exam Head Exam: NORMAL INSPECTION - Eye Exam Eye Exam: EOMI - ENT Exam ENT Exam: Mucous Membranes Moist - Respiratory Exam Respiratory Exam: Clear to Ausculation Bilateral, NORMAL BREATHING PATTERN. absent: Rales, Rhonchi, Wheezes - Cardiovascular Exam Cardiovascular Exam: REGULAR RHYTHM, +S1, +S2. absent: Gallop, Rubs, Murmur - GI/Abdominal Exam GI & Abdominal Exam: Soft, Normal Bowel Sounds. absent: Guarding, Rigid, Tenderness - Extremities Exam Extremities Exam: Normal Capillary Refill. absent: Pedal Edema - Neurological Exam Neurological Exam: Alert, Oriented x3 - Psychiatric Exam Psychiatric exam: Normal Affect, Normal Mood - Skin Skin Exam: Normal Color, Warm Assessment and Plan - Assessment and Plan (Free Text) Assessment: 1) Alcohol withdrawal syndrome Assessment & Plan: Patient has been put on Ativan prn, will keep for with CIWA protocol for now. Because of the elevated LFTs have decided to dc his Librium. LFTs decreasing Hepatitis panel negative Patient on Folic, thiamine, Multivitamin D/C with multivitamin and thiamine. F/U with alcohol rehab center Status: Acute (2) Transaminitis Assessment & Plan: Most likely secondary to the Librium given. Hepatitis negative Improving Status: Acute (3) Thrombocytopenia Assessment & Plan: Secondary to his etoh abuse. Status: Acute (4) Prophylactic measure Assessment & Plan: Protonix 40mg no anticoagulation due thrombocytopenia Nicoderm cq Zoloft 50mg Cogentin <Mirna Davis S - Last Filed: 08/01/16 22:41> Objective - Vital Signs/Intake and Output Vital Signs (last 24 hours): Temp Pulse Resp BP Pulse Ox 97.6 F 68 20 95/56 L 96 08/01/16 15:53 08/01/16 15:53 08/01/16 15:53 08/01/16 15:53 08/01/16 15:53 - Medications Medications: Current Medications Benztropine Mesylate (Cogentin) 1 mg PO BID [facility] Last Admin: 08/01/16 18:45 Dose: 1 mg Famotidine (Pepcid) 20 mg PO DAILY [facility] Last Admin: 08/01/16 09:39 Dose: 20 mg Folic Acid (Folic Acid) 1 mg PO DAILY [facility] Last Admin: 08/01/16 09:39 Dose: 1 mg Haloperidol (Haldol) 5 mg PO BID [facility] Last Admin: 08/01/16 18:45 Dose: 5 mg Levetiracetam (Keppra) 250 mg PO BID [facility] Last Admin: 08/01/16 18:44 Dose: 250 mg Lorazepam (Ativan) 1 mg PO Q6 PRN PRN Reason: Symptoms of alcohol withdrawl Last Admin: 08/01/16 19:27 Dose: 1 mg Metoclopramide HCl (Reglan) 10 mg PO TIDAC [facility] Last Admin: 08/01/16 18:45 Dose: 10 mg Multivitamins (Hexavitamin) 1 tab PO DAILY [facility] Last Admin: 08/01/16 09:39 Dose: 1 tab Nicotine (Nicoderm Cq) 1 patch TD DAILY [facility] Last Admin: 08/01/16 09:40 Dose: 1 patch Sertraline HCl (Zoloft) 50 mg PO DAILY [facility] Last Admin: 08/01/16 09:39 Dose: 50 mg Thiamine HCl (Vitamin B1 Tab) 100 mg PO DAILY [facility] Last Admin: 08/01/16 09:39 Dose: 100 mg - Labs Labs: 08/01/16 07:26 08/01/16 07:26 Attending/Attestation - Attestation I have personally seen and examined this patient.: Yes I have fully participated in the care of the patient.: Yes I have reviewed all pertinent clinical information, including history, physical exam and plan: Yes Notes (Text): 08/01/16 22:41 case seen and discussed with staff and resident mx as agreed
--- NOTE | 2016-08-01 18:00 | CP.PCM.PN ---
Subjective - Date & Time of Evaluation Date of Evaluation: 08/01/16 Time of Evaluation: 10:00 - Subjective Subjective: clinically same Objective - Vital Signs/Intake and Output Vital Signs (last 24 hours): Temp Pulse Resp BP Pulse Ox 97.6 F 68 20 95/56 L 96 08/01/16 15:53 08/01/16 15:53 08/01/16 15:53 08/01/16 15:53 08/01/16 15:53 - Medications Medications: Current Medications Benztropine Mesylate (Cogentin) 1 mg PO BID [facility] Last Admin: 08/01/16 09:39 Dose: 1 mg Famotidine (Pepcid) 20 mg PO DAILY [facility] Last Admin: 08/01/16 09:39 Dose: 20 mg Folic Acid (Folic Acid) 1 mg PO DAILY [facility] Last Admin: 08/01/16 09:39 Dose: 1 mg Haloperidol (Haldol) 5 mg PO BID [facility] Last Admin: 08/01/16 09:40 Dose: 5 mg Levetiracetam (Keppra) 250 mg PO BID [facility] Last Admin: 08/01/16 09:39 Dose: 250 mg Lorazepam (Ativan) 1 mg PO Q6 PRN PRN Reason: Symptoms of alcohol withdrawl Last Admin: 08/01/16 11:08 Dose: 1 mg Metoclopramide HCl (Reglan) 10 mg PO TIDAC [facility] Last Admin: 08/01/16 13:05 Dose: 10 mg Multivitamins (Hexavitamin) 1 tab PO DAILY [facility] Last Admin: 08/01/16 09:39 Dose: 1 tab Nicotine (Nicoderm Cq) 1 patch TD DAILY [facility] Last Admin: 08/01/16 09:40 Dose: 1 patch Sertraline HCl (Zoloft) 50 mg PO DAILY [facility] Last Admin: 08/01/16 09:39 Dose: 50 mg Thiamine HCl (Vitamin B1 Tab) 100 mg PO DAILY [facility] Last Admin: 08/01/16 09:39 Dose: 100 mg - Labs Labs: 08/01/16 07:26 08/01/16 07:26 - Constitutional Appears: Well - Head Exam Head Exam: ATRAUMATIC, NORMAL INSPECTION, NORMOCEPHALIC - Eye Exam Eye Exam: EOMI, Normal appearance, PERRL Pupil Exam: NORMAL ACCOMODATION, PERRL - ENT Exam ENT Exam: Mucous Membranes Moist, Normal Exam - Neck Exam Neck Exam: Full ROM, Normal Inspection. absent: Lymphadenopathy - Respiratory Exam Respiratory Exam: Decreased Breath Sounds - Cardiovascular Exam Cardiovascular Exam: REGULAR RHYTHM, +S1, +S2 - GI/Abdominal Exam GI & Abdominal Exam: Soft, Diminished Bowel Sounds - Rectal Exam Rectal Exam: Deferred Assessment and Plan (1) Abdominal pain Status: Acute (2) Alcohol withdrawal Status: Acute (3) Alcohol withdrawal syndrome Status: Acute (4) Confusion Status: Acute (5) Prophylactic measure Status: Acute (6) Thrombocytopenia Status: Acute (7) Alcohol abuse Status: Acute (8) Alcohol dependence Status: Acute (9) Alcoholism /alcohol abuse Assessment & Plan: s/p gi thimine mvi hepatitis serology negative lft tomorrow am Status: Acute
[2016-08-02 07:32] LABS: BASO % 0.5 % (0.0-2.0); CHLORIDE 98 mmol/L (98-107); EOS # 0.2 K/uL (0.0-0.7); EOS % 3.9 % (0.0-4.0); HEMATOCRIT 38.3 % (35.0-51.0); LYMPH # 2.6 K/uL (1.0-4.3); LYMPH % 54.2 % (20.0-40.0); MEAN CELL VOLUME 94.7 fL (80.0-94.0); MEAN CORPUSCULAR HEMOGLOBIN 32.3 pg (27.0-31.0); MEAN CORPUSCULAR HGB CONC 34.1 g/dL (33.0-37.0); MEAN PLATELET VOLUME 9.1 fL (7.2-11.7); MONO # 0.6 K/uL (0.0-0.8); WHITE BLOOD COUNT 4.7 K/uL (4.8-10.8)
[2016-08-02 07:33] LABS: SODIUM 140 mmol/L (132-148)
[2016-08-02 07:35] LABS: ALB/GLOB RATIO 1.4 (1.0-2.1); ALKALINE PHOSPHATASE 42 U/L (38-126); ALT/SGPT 258 U/L (21-72); AST/SGOT 154 U/L (17-59); BILIRUBIN,TOTAL 0.3 mg/dL (0.2-1.3); BLOOD UREA NITROGEN 14 mg/dL (9-20); CARBON DIOXIDE 28 mmol/L (22-30); GFR AFRICAN-AMERICAN > 60; TOTAL PROTEIN 6.6 g/dL (6.3-8.3)
[2016-08-02 07:36] LABS: GLUCOSE,RANDOM 92 mg/dL (75-110)
[2016-08-02 07:44] VITALS: BP 99/55; PULSE 57; TEMP 97.5; O2SAT 97
--- NOTE | 2016-08-02 08:25 | CP.PCM.PN ---
Subjective - Date & Time of Evaluation Date of Evaluation: 08/02/16 Time of Evaluation: 11:00 - Subjective Subjective: Dr. Davis service, patient is seen and examined in room. He has no complaints of pain, nausea, vomiting, diarrhea, fever, chills, or anxiety. He is eating well. Objective - Vital Signs/Intake and Output Vital Signs (last 24 hours): Temp Pulse Resp BP Pulse Ox 97.5 F L 57 L 20 99/55 L 97 08/02/16 07:42 08/02/16 07:42 08/02/16 07:42 08/02/16 07:42 08/02/16 07:42 Intake and Output: 08/02/16 08/02/16 06:59 18:59 Intake Total 480 Balance 480 - Medications Medications: Current Medications Benztropine Mesylate (Cogentin) 1 mg PO BID [facility] Last Admin: 08/01/16 18:45 Dose: 1 mg Famotidine (Pepcid) 20 mg PO DAILY [facility] Last Admin: 08/01/16 09:39 Dose: 20 mg Folic Acid (Folic Acid) 1 mg PO DAILY [facility] Last Admin: 08/01/16 09:39 Dose: 1 mg Haloperidol (Haldol) 5 mg PO BID [facility] Last Admin: 08/01/16 18:45 Dose: 5 mg Levetiracetam (Keppra) 250 mg PO BID [facility] Last Admin: 08/01/16 18:44 Dose: 250 mg Lorazepam (Ativan) 1 mg PO Q6 PRN PRN Reason: Symptoms of alcohol withdrawl Last Admin: 08/01/16 19:27 Dose: 1 mg Metoclopramide HCl (Reglan) 10 mg PO TIDAC [facility] Last Admin: 08/02/16 08:00 Dose: 10 mg Multivitamins (Hexavitamin) 1 tab PO DAILY [facility] Last Admin: 08/01/16 09:39 Dose: 1 tab Nicotine (Nicoderm Cq) 1 patch TD DAILY [facility] Last Admin: 08/01/16 09:40 Dose: 1 patch Sertraline HCl (Zoloft) 50 mg PO DAILY [facility] Last Admin: 08/01/16 09:39 Dose: 50 mg Thiamine HCl (Vitamin B1 Tab) 100 mg PO DAILY [facility] Last Admin: 08/01/16 09:39 Dose: 100 mg - Labs Labs: 08/02/16 07:11 08/02/16 07:11 - Constitutional Appears: Non-toxic, No Acute Distress - Head Exam Head Exam: NORMAL INSPECTION - Eye Exam Eye Exam: Normal appearance - Respiratory Exam Respiratory Exam: Clear to Ausculation Bilateral. absent: Rhonchi, Wheezes - Cardiovascular Exam Cardiovascular Exam: REGULAR RHYTHM, RRR, +S1, +S2. absent: Gallop, Rubs - Psychiatric Exam Psychiatric exam: Normal Affect, Normal Mood - Skin Skin Exam: Normal Color. absent: Diaphoretic Assessment and Plan - Assessment and Plan (Free Text) Assessment: 1) Alcohol withdrawal syndrome Assessment & Plan: 08/02: Patient discharged home, he will need to have his LFTs monitored ever other day , he is to follow up with Dr. Davis in his office tomorrow afternoon to have his LFTs checked again. Patient has been put on Ativan prn, will keep for with CIWA protocol for now. Because of the elevated LFTs have decided to dc his Librium. LFTs decreasing Hepatitis panel negative Patient on Folic, thiamine, Multivitamin D/C with multivitamin and thiamine. F/U with alcohol rehab center Status: Acute (2) Transaminitis Assessment & Plan: Most likely secondary to the Librium given. Hepatitis negative Improving Status: Acute (3) Thrombocytopenia Assessment & Plan: Secondary to his etoh abuse. Status: Acute (4) Prophylactic measure Assessment & Plan: Protonix 40mg no anticoagulation due thrombocytopenia Nicoderm cq Zoloft 50mg Cogentin
[2016-08-02] MEDS: Multiple Vitamins Tab PO SCH (10:07)
--- NOTE | 2016-08-02 12:40 | CP.PCM.PN ---
Subjective - Date & Time of Evaluation Date of Evaluation: 08/02/16 Time of Evaluation: 10:00 - Subjective Subjective: clinically same Objective - Vital Signs/Intake and Output Vital Signs (last 24 hours): Temp Pulse Resp BP Pulse Ox 97.5 F L 57 L 20 99/55 L 97 08/02/16 07:42 08/02/16 07:42 08/02/16 07:42 08/02/16 07:42 08/02/16 07:42 Intake and Output: 08/02/16 08/02/16 06:59 18:59 Intake Total 480 Balance 480 - Medications Medications: Current Medications Benztropine Mesylate (Cogentin) 1 mg PO BID [facility] Last Admin: 08/02/16 10:08 Dose: 1 mg Famotidine (Pepcid) 20 mg PO DAILY [facility] Last Admin: 08/02/16 10:07 Dose: 20 mg Folic Acid (Folic Acid) 1 mg PO DAILY [facility] Last Admin: 08/02/16 10:07 Dose: 1 mg Haloperidol (Haldol) 5 mg PO BID [facility] Last Admin: 08/02/16 10:08 Dose: 5 mg Levetiracetam (Keppra) 250 mg PO BID [facility] Last Admin: 08/02/16 10:07 Dose: 250 mg Lorazepam (Ativan) 1 mg PO Q6 PRN PRN Reason: Symptoms of alcohol withdrawl Last Admin: 08/01/16 19:27 Dose: 1 mg Metoclopramide HCl (Reglan) 10 mg PO TIDAC [facility] Last Admin: 08/02/16 11:12 Dose: 10 mg Multivitamins (Hexavitamin) 1 tab PO DAILY [facility] Last Admin: 08/02/16 10:07 Dose: 1 tab Nicotine (Nicoderm Cq) 1 patch TD DAILY [facility] Last Admin: 08/02/16 10:07 Dose: 1 patch Sertraline HCl (Zoloft) 50 mg PO DAILY [facility] Last Admin: 08/02/16 10:07 Dose: 50 mg Thiamine HCl (Vitamin B1 Tab) 100 mg PO DAILY [facility] Last Admin: 08/02/16 10:07 Dose: 100 mg - Labs Labs: 08/02/16 07:11 08/02/16 07:11 - Constitutional Appears: Well - Head Exam Head Exam: ATRAUMATIC, NORMAL INSPECTION, NORMOCEPHALIC - Eye Exam Eye Exam: EOMI, Normal appearance, PERRL Pupil Exam: NORMAL ACCOMODATION, PERRL - ENT Exam ENT Exam: Mucous Membranes Moist, Normal Exam - Neck Exam Neck Exam: Full ROM, Normal Inspection. absent: Lymphadenopathy - Respiratory Exam Respiratory Exam: Decreased Breath Sounds - Cardiovascular Exam Cardiovascular Exam: REGULAR RHYTHM, +S1, +S2 - GI/Abdominal Exam GI & Abdominal Exam: Soft, Diminished Bowel Sounds - Rectal Exam Rectal Exam: Deferred Assessment and Plan (1) Abdominal pain Status: Acute (2) Alcohol withdrawal Status: Acute (3) Alcohol withdrawal syndrome Status: Acute (4) Anxiety and depression Status: Acute (5) Thrombocytopenia Status: Acute (6) Alcohol abuse Status: Acute (7) Alcohol dependence Status: Acute (8) Alcohol intoxication Status: Acute - Assessment and Plan (Free Text) Plan: lft remians smae pt asurd for follow up tomorrow adv to se his pmd or can come to my ofice [facility] to [facility] are not [facility] anything no nause aor ovmitting tremors imroved significantly pt agreed for follwup hence discharge return to er for any codition worsened
== END 2016-08-02 14:36 | disposition home or self-care (01) | DRG 750 ==
LOC: C.ER 18:28 → C.9E 22:51 → C.6T 23:35 → C.5T 07-30 11:33
PROVIDERS: ADMIT Internal Medicine Nephrology; ATTEND Internal Medicine Nephrology
PROC: GZ56ZZZ Individual Psychotherapy, Supportive (ICD-10-PCS; principal; 2016-07-26)
PROC: HZ2ZZZZ Detoxification Services for Substance Abuse Treatment (ICD-10-PCS; 2016-07-26)
DX: F10.231 Alcohol dependence with withdrawal delirium (principal); F31.64 Bipolar disorder, current episode mixed, severe, with psychotic features; I10 Essential (primary) hypertension; F41.9 Anxiety disorder, unspecified; G47.00 Insomnia, unspecified; N40.0 Benign prostatic hyperplasia without lower urinary tract symptoms; K59.00 Constipation, unspecified; Z68.23 Body mass index [BMI] 23.0-23.9, adult; F17.219 Nicotine dependence, cigarettes, with unspecified nicotine-induced disorders; Y90.0 Blood alcohol level of less than 20 mg/100 ml

== ENCOUNTER 2016-10-30 18:03 | Inpatient (IN) | payer MEDICAID ==
[2016-10-30 18:03] VITALS: BMI 23.9
[2016-10-30] MEDS ORDERED: Folic Acid 1 MG, Thiamine 100 MG, Multivitamin (MVI) 10 ML in Dextrose 5% In Water 1,00... IV SCH ×2 (19:15→19:34)
[2016-10-30 19:37] LABS: BASO % 0.5 % (0.0-2.0); EOS % 0.1 % (0.0-4.0); HEMATOCRIT 46.3 % (35.0-51.0); LYMPH % 20.7 % (20.0-40.0); MEAN CORPUSCULAR HEMOGLOBIN 31.8 pg (27.0-31.0); MEAN CORPUSCULAR HGB CONC 34.5 g/dL (33.0-37.0); MEAN PLATELET VOLUME 8.9 fL (7.2-11.7); MONO # 0.4 K/uL (0.0-0.8); MONO % 7.1 % (0.0-10.0); NRBC % 0.3 % (0.0-2.0)
--- NOTE | 2016-10-30 19:37 | C.PDOC ---
History Of Present Illness 51 y/o male hx alcohol abuse presents to ED with complaints of withdrawal. Pt reports drinking a liter of vodka daily, stopped 2 days ago. Pt denies fever, hallucinations, SOB or any other complaints. Time Seen by Provider: 10/30/16 18:29 Chief Complaint (Nursing): Substance Abuse History Per: Patient History/Exam Limitations: no limitations Onset/Duration Of Symptoms: Hrs Current Symptoms Are (Timing): Still Present Modifying Factor(s): Alcohol Severity: Mild Associated Symptoms: denies: Suicidal Thoughts Involuntary Hold By: None Recent travel outside of the [place]: No Past Medical History Reviewed: Historical Data, Nursing Documentation, Vital Signs Vital Signs: Last Vital Signs Temp 97.8 F 10/30/16 18:15 Pulse 85 10/30/16 23:24 Resp 18 10/30/16 23:24 BP 130/74 10/30/16 23:24 Pulse Ox 99 10/30/16 23:24 - Medical History PMH: Anxiety, Depression, 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) - [facility] Procedures ALCOHOL DETOXIFICATION (09/28/14) DETOXIFICATION SERVICES FOR SUBSTANCE ABUSE TREATMENT (07/26/16) GROUP RESOURCE CONSERVATION MANAGER FOR SUBSTANCE ABUSE TREATMENT, PSYCHOEDUCATION (10/27/15) INDIVIDUAL PSYCHOTHERAPY, SUPPORTIVE (07/26/16) Family History: States: Unknown Family Hx - Social History Hx Tobacco Use: Yes Hx Alcohol Use: Yes Hx Substance Use: Yes ("some 30 years ago") - Immunization History Hx Tetanus Toxoid Vaccination: No Hx Influenza Vaccination: No Hx Pneumococcal Vaccination: No Review Of Systems Except As Marked, All Systems Reviewed And Found Negative. Constitutional: Negative for: Fever Respiratory: Negative for: Shortness of Breath Psych: Positive for: Withdrawal, Other (no hallucinations). Negative for: Suicidal ideation Physical Exam - Physical Exam Additional Physical Exam Comments: Constitutional: No acute distress. Head: Normocephalic. Atraumatic. Eyes: PERRL. ENT: Moist mucous membranes. (+) tongue fasciculations. Neck: Supple. Cardiovascular: Regular rate. Radial pulse 2+ bilaterally. Chest: No tenderness. Respiratory: Clear to auscultation bilaterally. GI: Soft. Nontender. Nondistended. Back: No CVA tenderness. Musculoskeletal: No tenderness or swelling of extremities. Skin: No rash. Neurologic: Alert, no focal deficit. Tremulous at rest. ED Course And Treatment - Laboratory Results Result Diagrams: 10/30/16 19:25 10/30/16 19:25 O2 Sat by Pulse Oximetry: 97 (room air) Pulse Ox Interpretation: Normal Medical Decision Making Medical Decision Making: Plan: * CXR * labs * UA * ativan * banana bag CXR no acute disease. Accepted for admission for alcohol withdrawal by hospitalist service. Disposition - Disposition Disposition: HOSPITALIZED Disposition Time: 20:27 Condition: GUARDED - Clinical Impression Clinical Impression: Alcohol withdrawal - Scribe Statement The provider has reviewed the documentation as recorded by the Jade Balderas Provider Attestation: All medical record entries made by the Jade were at my direction and personally dictated by me. I have reviewed the chart and agree that the record accurately reflects my personal performance of the history, physical exam, medical decision making, and the department course for this patient. I have also personally directed, reviewed, and agree with the discharge instructions and disposition.
[2016-10-30 19:39] LABS: MEAN CELL VOLUME 91.9 fL (80.0-94.0)
[2016-10-30 20:09] LABS: CHLORIDE 97 mmol/L (98-107); POTASSIUM 4.3 mmol/L (3.6-5.2); SODIUM 143 mmol/L (132-148)
[2016-10-30 20:11] LABS: BILIRUBIN,TOTAL 0.9 mg/dL (0.2-1.3); CARBON DIOXIDE 21 mmol/L (22-30); GFR AFRICAN-AMERICAN > 60
[2016-10-30 20:12] LABS: ALB/GLOB RATIO 1.3 (1.0-2.1); ALKALINE PHOSPHATASE 89 U/L (38-126); ALT/SGPT 50 U/L (21-72); AST/SGOT 72 U/L (17-59); BLOOD UREA NITROGEN 12 mg/dL (9-20); CALCIUM 9.6 mg/dl (8.6-10.4); GLUCOSE,RANDOM 132 mg/dL (75-110); TOTAL PROTEIN 8.4 g/dL (6.3-8.3)
[2016-10-30 20:13] LABS: ALCOHOL SERUM 20 mg/dl (0-10)
[2016-10-30 21:13] LABS: RBC URINE 2 /hpf (0-3); URINE BACTERIA RARE (<OCC); URINE BILIRUBIN NEGATIVE (NEGATIVE); URINE BLOOD NEGATIVE (NEGATIVE); URINE COLOR Yellow (YELLOW); URINE GLUCOSE (UA) NORMAL (Normal); URINE KETONE 2+ mg/dL (NEGATIVE); URINE LEUKOCYTE ESTERASE NEG Leu/uL (Negative); URINE PROTEIN 2+ mg/dL (NEGATIVE); URINE UROBILINOGEN NORMAL mg/dL (0.2-1.0); WBC URINE < 1 /hpf (0-5)
[2016-10-30 22:02] LABS: ABG ALLEN TEST PS; DRAW SITE RRA
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
[2016-10-31 01:30] VITALS: RESP 20
[2016-10-31 08:10] LABS: BASO % 0.6 % (0.0-2.0); EOS # 0.1 K/uL (0.0-0.7); EOS % 1.9 % (0.0-4.0); HEMATOCRIT 44.4 % (35.0-51.0); LYMPH # 1.9 K/uL (1.0-4.3); LYMPH % 34.7 % (20.0-40.0); MEAN CELL VOLUME 93.4 fL (80.0-94.0); MEAN CORPUSCULAR HEMOGLOBIN 31.3 pg (27.0-31.0); MEAN CORPUSCULAR HGB CONC 33.6 g/dL (33.0-37.0); MEAN PLATELET VOLUME 8.8 fL (7.2-11.7); MONO # 0.6 K/uL (0.0-0.8); MONO % 10.9 % (0.0-10.0); RED CELL DISTRIBUTION WIDTH 14.1 % (11.5-14.5); WHITE BLOOD COUNT 5.6 K/uL (4.8-10.8)
[2016-10-31 08:25] LABS: CHLORIDE 98 mmol/L (98-107)
[2016-10-31 08:26] LABS: POTASSIUM 3.2 mmol/L (3.6-5.2); SODIUM 137 mmol/L (132-148)
[2016-10-31 08:28] LABS: ALB/GLOB RATIO 1.3 (1.0-2.1); AST/SGOT 51 U/L (17-59); BILIRUBIN,TOTAL 0.9 mg/dL (0.2-1.3); CARBON DIOXIDE 30 mmol/L (22-30); GFR AFRICAN-AMERICAN > 60; TOTAL PROTEIN 7.1 g/dL (6.3-8.3)
[2016-10-31 08:29] LABS: ALKALINE PHOSPHATASE 66 U/L (38-126); ALT/SGPT 40 U/L (21-72); BLOOD UREA NITROGEN 14 mg/dL (9-20); CALCIUM 8.8 mg/dl (8.6-10.4); GLUCOSE,RANDOM 94 mg/dL (75-110); MAGNESIUM 1.7 mg/dL (1.6-2.3); PHOSPHOROUS 3.4 mg/dL (2.5-4.5)
--- NOTE | 2016-10-31 08:52 | RAD ---
HISTORY: alcohol withdrawal COMPARISON: No prior. FINDINGS: LUNGS: No active pulmonary disease. PLEURA: No significant pleural effusion identified, no pneumothorax apparent. CARDIOVASCULAR: Normal. OSSEOUS STRUCTURES: No significant abnormalities. VISUALIZED UPPER ABDOMEN: Normal. OTHER FINDINGS: None. IMPRESSION: No active disease.
--- NOTE | 2016-10-31 09:39 | CP.PCM.PN ---
<GonzalesChris R - Last Filed: 10/31/16 15:03> Subjective - Date & Time of Evaluation Date of Evaluation: 10/31/16 Time of Evaluation: 09:32 - Subjective Subjective: Patient was out of bed with physical therapist upon my arrival. Patient was pleasant and able to converse. He stated he had mild anxiety, tremor, headache and tactile stimulus. He said the ativan was helping to control his symptoms. Patient stated he was discharged prematurely on his last admission in 07/2016 and is worried he will be discharged too soon this time as well. Patient admits abdominal discomfort in his left lower quadrant. He denies chest pain, cough, seizure, excessive sweating, diarrhea. Objective - Vital Signs/Intake and Output Vital Signs (last 24 hours): Temp Pulse Resp BP Pulse Ox 98.4 F 58 L 20 115/74 98 10/31/16 07:02 10/31/16 07:02 10/31/16 07:02 10/31/16 07:02 10/31/16 07:02 - Medications Medications: Current Medications Folic Acid 1 mg/ Sodium (Chloride) 100.2 mls @ 60 mls/hr IV DAILY GENEVA Lorazepam (Ativan) 2 mg PO Q4 GENEVA PRN Reason: Taper Stop: 11/04/16 22:14 Last Admin: 10/31/16 08:31 Dose: 2 mg Lorazepam (Ativan) 1 mg IVP Q6H PRN PRN Reason: Agitation Ondansetron HCl (Zofran Inj) 4 mg IVP Q6 PRN PRN Reason: Nausea/Vomiting Thiamine HCl (Vitamin B1 Inj) 100 mg IV DAILY GENEVA - Labs Labs: 10/31/16 08:06 10/31/16 08:06 PT 11.4 SECONDS (9.7-12.2) 10/30/16 19:25 INR 1.0 10/30/16 19:25 APTT 26 SECONDS (21-34) 10/30/16 19:25 - Constitutional Appears: Well - Head Exam Head Exam: NORMAL INSPECTION, NORMOCEPHALIC - Eye Exam Eye Exam: EOMI, Nystagmus Pupil Exam: Miosis Additional comments: Nystagmus noted when testing for extraocular movements - ENT Exam ENT Exam: Mucous Membranes Moist - Neck Exam Neck Exam: Full ROM - Respiratory Exam Respiratory Exam: Clear to Ausculation Bilateral, NORMAL BREATHING PATTERN - Cardiovascular Exam Cardiovascular Exam: REGULAR RHYTHM, +S1, +S2 - GI/Abdominal Exam GI & Abdominal Exam: Guarding, Soft, Hyperactive Bowel Sounds. absent: Distended, Rebound Additional comments: Mild guarding in left lower quadrant - Rectal Exam Rectal Exam: Deferred - Extremities Exam Extremities Exam: Normal Inspection - Psychiatric Exam Psychiatric exam: Normal Affect - Skin Skin Exam: Normal Color, Warm Assessment and Plan - Assessment and Plan (Free Text) Assessment: Alcohol Withdrawal CIWA score of 8 this morning Ativan 2mg PO tapered to control withdrawal symptoms. 4 doses recived thus far. Zofran 4mg IV PRN to control nausea Folic acid 1mg PO/Vitamin B1 100mg PO Physical therapy eval for gait instability Seizure precautions Aspiration precautions Urine Cx ordered by ED physician, f/u CMP, CBC, Mag, Phos ordered for tmr AM Failed previous detox attempts Psychiatry consulted, f/u psych recs Prophylactic Measures Protonix 40mg PO SCDs Regular diet <Avinash Carballo - Last Filed: 10/31/16 18:30> Objective - Vital Signs/Intake and Output Vital Signs (last 24 hours): Temp Pulse Resp BP Pulse Ox 98.3 F 66 20 117/73 98 10/31/16 16:25 10/31/16 16:25 10/31/16 16:25 10/31/16 16:25 10/31/16 16:25 - Medications Medications: Current Medications Folic Acid (Folic Acid) 1 mg PO DAILY GENEVA Lorazepam (Ativan) 2 mg PO Q4 GENEVA PRN Reason: Taper Stop: 11/04/16 22:14 Last Admin: 10/31/16 17:00 Dose: 2 mg Lorazepam (Ativan) 1 mg IVP Q6H PRN PRN Reason: Agitation Ondansetron HCl (Zofran Inj) 4 mg IVP Q6 PRN PRN Reason: Nausea/Vomiting Pantoprazole Sodium (Protonix Ec Tab) 40 mg PO DAILY GENEVA Thiamine HCl (Vitamin B1 Tab) 100 mg PO DAILY GENEVA - Labs Labs: 10/31/16 08:06 10/31/16 08:06 PT 11.4 SECONDS (9.7-12.2) 10/30/16 19:25 INR 1.0 10/30/16 19:25 APTT 26 SECONDS (21-34) 10/30/16 19:25 Attending/Attestation - Attestation I have personally seen and examined this patient.: Yes I have fully participated in the care of the patient.: Yes I have reviewed all pertinent clinical information, including history, physical exam and plan: Yes Notes (Text): 10/31/16 18:29 Patient was seen and examined at bedside with the resident We will continue Ativan taper for alcohol withdrawal Discussed the plan of care with the resident and agree with the above history and physical and assessment/plan with the resident.
[2016-10-31] MEDS ORDERED: Thiamine 100 mg/ml Inj IV SCH (10:00)
[2016-10-31] MEDS ORDERED: Potassium Chloride 20 mEq ER Tab PO ONE (10:00)
[2016-11-01 04:56] VITALS: PULSE 52
[2016-11-01 07:05] LABS: BASO % 0.3 % (0.0-2.0); EOS # 0.2 K/uL (0.0-0.7); EOS % 3.8 % (0.0-4.0); HEMATOCRIT 43.3 % (35.0-51.0); LYMPH # 1.6 K/uL (1.0-4.3); LYMPH % 29.7 % (20.0-40.0); MEAN CELL VOLUME 93.9 fL (80.0-94.0); MEAN CORPUSCULAR HEMOGLOBIN 31.2 pg (27.0-31.0); MEAN CORPUSCULAR HGB CONC 33.2 g/dL (33.0-37.0); MEAN PLATELET VOLUME 9.4 fL (7.2-11.7); MONO # 0.3 K/uL (0.0-0.8); MONO % 5.2 % (0.0-10.0); NRBC % 0.1 % (0.0-2.0); WHITE BLOOD COUNT 5.5 K/uL (4.8-10.8)
[2016-11-01 07:37] LABS: CHLORIDE 102 mmol/L (98-107); POTASSIUM 3.5 mmol/L (3.6-5.2); SODIUM 138 mmol/L (132-148)
[2016-11-01 07:39] LABS: BILIRUBIN,TOTAL 1.1 mg/dL (0.2-1.3); GFR AFRICAN-AMERICAN > 60
[2016-11-01 07:40] LABS: ALB/GLOB RATIO 1.2 (1.0-2.1); ALKALINE PHOSPHATASE 57 U/L (38-126); ALT/SGPT 69 U/L (21-72); AST/SGOT 116 U/L (17-59); BLOOD UREA NITROGEN 11 mg/dL (9-20); CALCIUM 9.2 mg/dl (8.6-10.4); CARBON DIOXIDE 28 mmol/L (22-30); GLUCOSE,RANDOM 101 mg/dL (75-110); PHOSPHOROUS 3.6 mg/dL (2.5-4.5); TOTAL PROTEIN 6.7 g/dL (6.3-8.3)
[2016-11-01 07:41] LABS: MAGNESIUM 1.7 mg/dL (1.6-2.3)
[2016-11-01 08:45] VITALS: BP 122/81; TEMP 97.7; O2SAT 98
[2016-11-01] MEDS ORDERED: Pantoprazole 40 mg EC Tab PO SCH ×2 (10:00)
[2016-11-01] MEDS ORDERED: Potassium Chloride 20 mEq ER Tab PO ONE (10:57)
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
== END 2016-11-01 14:20 | disposition home or self-care (01) | DRG 750 ==
LOC: C.ER 18:03 → C.9E 22:00 → OBSVTOIN 22:04 → C.6T 22:39
PROVIDERS: ADMIT Family Medicine; ATTEND Family Medicine
PROC: HZ2ZZZZ Detoxification Services for Substance Abuse Treatment (ICD-10-PCS; principal; 2016-10-30)
DX: F10.239 Alcohol dependence with withdrawal, unspecified (principal); D69.6 Thrombocytopenia, unspecified; F10.230 Alcohol dependence with withdrawal, uncomplicated; F41.9 Anxiety disorder, unspecified; Z72.0 Tobacco use; F10.220 Alcohol dependence with intoxication, uncomplicated; Y90.1 Blood alcohol level of 20-39 mg/100 ml

== ENCOUNTER 2016-11-17 20:43 | Observation (INO) | payer MEDICAID ==
[2016-11-17 20:43] VITALS: BMI 23.9
--- NOTE | 2016-11-17 21:42 | C.PDOC ---
History Of Present Illness <TrevorIrving benitez - Last Filed: 11/18/16 00:38> <Rodolfo Ernandez - Last Filed: 11/18/16 05:18> 51 year old male with a Hx of ETOH abuse who presents to the ER requesting detox from ETOH. Patient presents with mild tremors and has been admitted in the past for withdrawal. Patient is also complaining of right ear pain, denies fever or other physical complaints. (Irving Bellamy) History Per: Patient History/Exam Limitations: no limitations Onset/Duration Of Symptoms: Hrs Current Symptoms Are (Timing): Still Present Suicide/Self Injury Attempted (Context): None Modifying Factor(s): None Severity: None Associated Symptoms: denies: Depression, Suicidal Thoughts, Suicidal Plan Involuntary Hold By: None Recent travel outside of the [place]: No <YuricharleyIrving - Last Filed: 11/18/16 00:38> <AwaisAnaneva - Last Filed: 11/18/16 05:18> Time Seen by Provider: 11/17/16 21:38 Chief Complaint (Nursing): Substance Abuse Past Medical History Reviewed: Historical Data, Nursing Documentation, Vital Signs - Medical History PMH: Anxiety, Depression, 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) Surgical History: No Surg Hx Family History: States: Unknown Family Hx - Social History Hx Tobacco Use: Yes Hx Alcohol Use: Yes Hx Substance Use: Yes (socially) - Immunization History Hx Tetanus Toxoid Vaccination: No Hx Influenza Vaccination: No Hx Pneumococcal Vaccination: No <Irving Bellamy - Last Filed: 11/18/16 00:38> <AwaisAnaneva - Last Filed: 11/18/16 05:18> Vital Signs: Last Vital Signs Temp 97.4 F L 11/18/16 04:59 Pulse 78 11/18/16 04:59 Resp 20 11/18/16 04:59 BP 110/68 11/18/16 04:59 Pulse Ox 100 11/18/16 04:59 - [facility] Procedures ALCOHOL DETOXIFICATION (09/28/14) DETOXIFICATION SERVICES FOR SUBSTANCE ABUSE TREATMENT (10/30/16) GROUP SPEECH WRITER FOR SUBSTANCE ABUSE TREATMENT, PSYCHOEDUCATION (10/27/15) INDIVIDUAL PSYCHOTHERAPY, SUPPORTIVE (07/26/16) Review Of Systems Except As Marked, All Systems Reviewed And Found Negative. Constitutional: Negative for: Fever ENT: Positive for: Ear Pain (Right). Negative for: Ear Discharge Neurological: Positive for: Other (Tremors) <Irving Bellamy - Last Filed: 11/18/16 00:38> Physical Exam - Physical Exam Appears: Non-toxic Skin: Normal Color, Warm, Dry Head: Atraumatic, Normacephalic Ear(s): Left: Normal, Right: TM Erythema Oral Mucosa: Moist Chest: Symmetrical, No Tenderness Cardiovascular: Rhythm Regular (Tachycardic), No Murmur Respiratory: No Rales, No Rhonchi, No Wheezing Gastrointestinal/Abdominal: Soft, No Tenderness Neurological/Psych: Oriented x3, Normal Speech, Normal Cognition, Other ( Tremulous) <Irving Bellamy - Last Filed: 11/18/16 00:38> ED Course And Treatment - Laboratory Results Result Diagrams: 11/17/16 22:34 11/17/16 22:34 ECG: Interpreted By Me, Viewed By Me ECG Rhythm: Sinus Rhythm ECG Interpretation: Normal Interpretation Of ECG: No ST/T changes. Rate From EC O2 Sat by Pulse Oximetry: 96 (Room air) Pulse Ox Interpretation: Normal <Irving Bellamy - Last Filed: 11/18/16 00:38> - Laboratory Results Result Diagrams: 11/17/16 22:34 11/17/16 22:34 Pulse Ox Interpretation: Normal Reevaluation Time: 05:18 Reassessment Condition: Improved <Rodolfo Ernandez - Last Filed: 11/18/16 05:18> Medical Decision Making <Irving Bellamy - Last Filed: 11/18/16 00:38> <Rodolfo Ernandez - Last Filed: 11/18/16 05:18> Medical Decision Making: Impression: 51 year old male requesting detox. Plan: * EKG * Blood work * Urinalysis * Librium * Crisis * 1240: pt sleeping comfortably in nad. no detox beds avail. pending sobriety and final dispo. 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 (Irving Bellamy) Disposition <Irving Bellamy - Last Filed: 11/18/16 00:38> Counseled Patient/Family Regarding: Studies Performed, Diagnosis, Need For Followup - Disposition Disposition Time: 01:00 <Rodolfo Ernandez - Last Filed: 11/18/16 05:18> - Disposition Disposition: HOME/ ROUTINE Condition: FAIR - Clinical Impression Clinical Impression: Alcoholism /alcohol abuse, Alcohol intoxication - Scribe Statement The provider has reviewed the documentation as recorded by the Scribe <Irving Bellamy - Last Filed: 11/18/16 00:38> <Rodolfo Ernandez - Last Filed: 11/18/16 05:18> - Scribe Statement Ruddy Jack All medical record entries made by the Scribe were at my direction and personally dictated by me. I have reviewed the chart and agree that the record accurately reflects my personal performance of the history, physical exam, medical decision making, and the department course for this patient. I have also personally directed, reviewed, and agree with the discharge instructions and disposition. (Irving Bellamy)
[2016-11-17 22:37] LABS: BASO % 0.7 % (0.0-2.0); EOS # 0.1 K/uL (0.0-0.7); EOS % 2.9 % (0.0-4.0); HEMOGLOBIN 14.5 g/dL (12.0-18.0); LYMPH # 2.4 K/uL (1.0-4.3); LYMPH % 53.6 % (20.0-40.0); MEAN CORPUSCULAR HEMOGLOBIN 31.1 pg (27.0-31.0); MEAN CORPUSCULAR HGB CONC 33.5 g/dL (33.0-37.0); MEAN PLATELET VOLUME 8.7 fL (7.2-11.7); MONO # 0.2 K/uL (0.0-0.8); MONO % 4.7 % (0.0-10.0); NEUT # 1.7 K/uL (1.8-7.0); NEUT % 38.1 % (50.0-75.0); RBC 4.66 Mil/uL (4.40-5.90); WHITE BLOOD COUNT 4.5 K/uL (4.8-10.8)
[2016-11-17 22:45] LABS: ALBUMIN 4.4 g/dL (3.5-5.0)
[2016-11-17 22:47] LABS: GFR AFRICAN-AMERICAN > 60; GFR NON-AFRICAN AMERICAN > 60
[2016-11-17 22:48] LABS: ALB/GLOB RATIO 1.3 (1.0-2.1); ALT/SGPT 130 U/L (21-72); AST/SGOT 128 U/L (17-59); BLOOD UREA NITROGEN 13 mg/dL (9-20); CALCIUM 8.7 mg/dl (8.6-10.4)
[2016-11-18 01:05] VITALS: RESP 20
[2016-11-18 05:01] VITALS: BP 110/68; PULSE 78; TEMP 97.4; O2SAT 100
--- NOTE | 2016-11-19 13:35 | CARD ---
APPROVED REPORT EKG Measurement Heart [id number] <Conclusion> Normal sinus rhythm Normal ECG
== END 2016-11-18 06:20 | disposition home or self-care (01) ==
LOC: C.ER 20:43 → C.9OBSV 23:20
PROVIDERS: ADMIT Student in an Organized Health Care Education/Training Program; ATTEND Student in an Organized Health Care Education/Training Program
DX: F10.120 Alcohol abuse with intoxication, uncomplicated (principal); Y90.8 Blood alcohol level of 240 mg/100 ml or more; Z87.891 Personal history of nicotine dependence
CPT/HCPCS: 80053; 80320; 85025; 93005; 99284; G0378